=== PATIENT | male | born 1980 | race African-American/Black ===

== ENCOUNTER 2022-04-08 15:16 | Emergency (ER) | payer MEDICAID, OTHER ==
[~2022-04-08] VITALS: Ht 170.2 cm; Wt 75.0 kg
[2022-04-08 15:30] VITALS: BP 114/78
== END 2022-04-08 20:30 | disposition left against medical advice (07) ==
LOC: ER 15:16
DX: Z53.21 Procedure and treatment not carried out due to patient leaving prior to being seen by health care provider (principal)